=== PATIENT | female | born 1985 | race Caucasian/White ===

== ENCOUNTER 2019-07-13 00:49 | Inpatient (IN) ==
[2019-07-13] MEDS ORDERED: BETAMETHASONE ACETATE,SOD PHOS 6 MG/ML VIAL IM ONE (01:10)
[2019-07-13] MEDS ORDERED: RINGER'S SOLUTION,LACTATED 1,000 ML IV PRN (01:10)
[2019-07-13] MEDS ORDERED: PENICILLIN G POTASSIUM 5 MILLIONUNT in DEXTROSE 5 % IN WATER 100 ML IV ONE ×2 (01:10)
[2019-07-13] MEDS ORDERED: TERBUTALINE SULFATE 1 MG/ML VIAL SC ONE (01:10)
[2019-07-13 01:23] LABS: Hematocrit 38.5 % (37.0-47.0); Hemoglobin 13.2 gm/dL (12.5-16.0); Mean Cell Volume 88.1 fl (78-100); Mean Corpuscular Hemoglobin 30.2 pg (27-31); Mean Corpuscular Hgb Conc 34.3 g/dl (32-36); Platelet Count 228 K/mm3 (150-450); Red Blood Count 4.37 M/mm3 (4.2-5.4); Red Cell Distribution Width 12.1 % (11.5-14.0); White Blood Count 14.6 K/mm3 (4.0-10.5)
[2019-07-13 01:28] LABS: Total Cells Counted 100
[2019-07-13] MEDS ORDERED: CLINDAMYCIN PHOSPHATE 900 MG in DEXTROSE 5 % IN WATER 100 ML IV SCH ×2 (01:30)
[2019-07-13 01:36] LABS: Eosinophil 1 % (0-3); Lymphocyte 45 % (20-51); Monocyte 6 % (0-9); Neutrophil 48 % (42-75); Platelet Estimate Normal (NORMAL); RBC Morphology Normal (NORMAL)
--- NOTE | 2019-07-13 02:34 | HP ---
Chief Complaint - Chief Complaint Date of Service: 07/13/19 Time of Service: 02:17 Chief Complaint: LOF History of Present Illness: 34 yo at 33 6/7 weeks presents to L&D complaining of a gush of fluid around 0015 with continued LOF since then. Patient got up to go the bathroom and on the way back to bed felt a gush of fluid that soaked her clothing and bed. She denies contractions, abdominal pain, SOB, vaginal bleeding, N/V/F/C. This complicated by h/o PTD at 32 wks (on progesterone suppositories), migraines, short cervix, and h/o LEEP. Rh negative Rubella immune GBS pending Medical History (Updated 07/13/19 @ 02:34 by Stephane Mcintosh DO) Cervix, short (affecting ) (Acute) 3cm on 08/17/19 History of delivery, currently (Acute) History of delivery (Chronic) 32 wks PPROM/PTD at [facility] Body piercing Onset Date: Unknown Hemorrhoids Onset Date: Unknown Migraine Onset Date: Unknown without aura Tattoos Onset Date: Unknown Wears glasses Onset Date: Unknown Abnormal Pap smear of cervix Onset Date: ~2008 delivery Onset Date: 10/09/16 Surgical History: Surgical History (Updated 07/13/19 @ 02:34 by Stephane Mcintosh DO) History of colposcopy Onset Date: ~2008 History of cryosurgery Onset Date: ~2008 History of tonsillectomy Onset Date: 1991 [place] teeth extracted Onset Date: ~2006 Family History: Family History (Updated 09/05/18 @ 15:54 by Yoanna Louis CMA) Mother Anemia History of blood transfusion Father Depression Grandmother Cancer maternal - skin cancer Dementia Family/Other Cancer great grandfather - prostate cancer Social History: (Last Reviewed 07/13/19 @ 02:25 by Stephane Mcintosh DO) Social History: adopted: No half-way: No Marital status: household members: spouse, children number of children: 1 current occupational status: employed current occupation: Teacher current occupational exposures/hazards: No Highest education level completed: Master's degree Sexually Active: Yes Service: No Tobacco: Smoking Status: Never smoker Alcohol: alcohol intake: current alcohol intake frequency: holiday/special occasion details: No alcohol since + UPT Substance Use: substance use type: does not use Dietary Habits: caffeine: Yes caffeine comment: 1/day Exercise: frequency: 3-4 times per week Trudy/Jewish: agree to transfusion: Yes Review Of Systems (GEN) - Review of Systems Generalized/Overall Review: Present: No Symptoms Reported EENTM: Present: No Symptoms Reported Respiratory: Present: No Symptoms Reported Cardiac: Present: No Symptoms Reported Abdominal: Present: No Symptoms Reported Genitourinary: Present: Other - vaginal LOF - clear Musculoskeletal: Present: No Symptoms Reported Neurological: Present: No Symptoms Reported Skin: Present: No Symptoms Reported Endocrine: Present: No Symptoms Reported Allergies/Adverse Reactions: Allergies Allergy/AdvReac Type Severity Reaction Status Date / Time amoxicillin Allergy Severe hives Verified 07/13/19 01:12 Penicillins Allergy Severe Hives Verified 07/13/19 01:12 Home Medications: HOME MEDICATIONS L.acidoph,Paracasei, B.lactis [Probiotic] 1 ea PO DAILY 08/26/16 [Last Taken Unknown] Pnv,Calcium 72/Iron/Folic Acid [ Plus Tablet] 1 ea PO DAILY 08/26/16 [La st Taken Unknown] Progesterone VGS 200 mg 1 supp suppository 1 supp VG HS #28 supp 03/17/19 [Last Taken Unknown] inulin 2 gram chewable tablet g PO tab 04/14/19 [Last Taken Unknown] magnesium 200 mg tablet 200 mg PO DAILY 06/02/19 [Last Taken Unknown] Exam - Exam Constitutional: Present: Alert, Oriented x3, Cooperative, No distress ENT Exam: Present: hearing grossly normal Neck: Present: supple. Absent: thyromegaly Breasts: Present: Exam deferred Respiratory: Present: lungs clear, no respiratory distress Cardiovascular/Chest: Present: regular rate, rhythm, no edema Abdomen: Present: soft, nontender, no rebound tenderness, other - gravid /Rectal: Present: Other - Vaginal pooling, Nitrazine swab positive, Cervix 4/90/0 - cephalic presentation Extremity: Present: no pedal edema, no calf tenderness Skin Exam: Present: normal color, warm/dry, no cyanosis Lymphatic: Present: no adenopathy Neurologic: Present: oriented x 3, other - anxious Appearance: Present: appropriate appearance, appropriate insight Eye contact: Present: cooperative, good eye contact Thoughts: Present: normal thought pattern Diagnostic Studies: Abnormal Lab Results 07/13/19 Range/Units 01:21 WBC 14.6 H (4.0-10.5) K/mm3 Neutrophils # (Manual) 7.0 H (1.3-6.0) K/mm3 Lymphocytes # (Manual) 6.6 H (1.5-3.5) k/mm3 Laboratory Results WBC 14.6 K/mm3 (4.0-10.5) H 07/13/19 01:21 RBC 4.37 M/mm3 (4.2-5.4) 07/13/19 01:21 Hgb 13.2 gm/dL (12.5-16.0) 07/13/19 01:21 Hct 38.5 % (37.0-47.0) 07/13/19 01:21 MCV 88.1 fl (78-100) 07/13/19 01:21 MCH 30.2 pg (27-31) 07/13/19 01:21 MCHC 34.3 g/dl (32-36) 07/13/19 01:21 RDW 12.1 % (11.5-14.0) 07/13/19 01:21 Plt Count 228 K/mm3 (150-450) 07/13/19 01:21 MPV 10.0 fl (8-12.5) 07/13/19 01:21 48 % (42-75) 07/13/19 01:21 45 % (20-51) 07/13/19 01:21 6 % (0-9) 07/13/19 01:21 1 % (0-3) 07/13/19 01:21 7.0 K/mm3 (1.3-6.0) H 07/13/19 01:21 6.6 k/mm3 (1.5-3.5) H 07/13/19 01:21 0.9 k/mm3 (0.0-1.0) 07/13/19 01:21 0.1 k/mm3 (0.0-0.7) 07/13/19 01:21 Normal (NORMAL) 07/13/19 01:21 RBC Morphology Normal (NORMAL) 07/13/19 01:21 Assessment/Plan - Assessment/Plan (1) premature rupture of membranes Assessment: Admit to L&D. GBS cx done. IV Clindamycin started per GBS protocol. Betamethasone 12mg IM x1, repeat in 24 hours. Minimize vaginal checks. R/b/a discussed with patient and family regarding transfer to [facility] vs delivering then transfer. Because patient's last labor was only 2 hours, we will deliver here and transfer baby to [facility] afterwards. Problem: Acute Qualifiers: PROM onset of labor timing: onset of labor within 24 hours of rupture Qualified Code(s): O42.019 - premature rupture of membranes, onset of labor within 24 hours of rupture, unspecified trimester (2) labor Problem: Acute Qualifiers: labor trimester: third trimester labor delivery status: with delivery in third trimester Fetus number: single or unspecified fetus Qualified Code(s): O60.14X0 - labor third trimester with delivery third trimester, not applicable or unspecified (3) Cervix, short (affecting ) Problem: Acute (4) History of delivery, currently Problem: Acute
[2019-07-13 03:29] LABS: Cocaine Ur Negative (NEGATIVE); Urine Barbiturate Negative (NEGATIVE); Urine Benzodiazepines Negative (NEGATIVE); Urine Opiates Negative (NEGATIVE); Urine PCP Negative (NEGATIVE); Urine THC Negative (NEGATIVE)
--- NOTE | 2019-07-13 03:38 | PN ---
Progess Note - Interim Date: 07/13/19 Time: 03:33 Narrative: 07/13/19 03:33 Patient becoming more uncomfortable with contractions and breathing through them Vital signs stable. FHT: 150 baseline, minimum variability, no decelerations, occasional small accelerations contractions q 1-3 min Cervix: 4-5/90/-1 Impression: Intrauterine at 33 6/7 weeks, premature rupture of membranes in labor, fetus with two-vessel cord. Unknown GBS status -on IV clindamycin due to penicillin allergy. Plan: Anticipate normal spontaneous vaginal delivery within the next 2 to 4 hours. Epidural as needed. Notify pediatricians.
[2019-07-13] MEDS ORDERED: GENTAMICIN SULFATE 400 MG in DEXTROSE 5 % IN WATER 100 ML IV ONE ×2 (04:07)
[2019-07-13] MEDS ORDERED: AZITHROMYCIN IV ONE ×2 (04:30)
[2019-07-13] MEDS ORDERED: DEXTROSE 5% IV ONE ×2 (04:30)
[2019-07-13] MEDS ORDERED: WATER IV ONE ×2 (04:30)
[2019-07-13] MEDS ORDERED: PENICILLIN G POTASSIUM 2.5 MILLIONUNT in DEXTROSE 5 % IN WATER 100 ML IV SCH ×2 (05:11)
[2019-07-13] MEDS ORDERED: HYDROCORTISONE 30 APPL TUBE TP PRN (07:56)
[2019-07-13] MEDS ORDERED: oxyCODONE HCL/ACETAMINOPHEN 1 TAB TABLET PO PRN (07:56)
[2019-07-13] MEDS ORDERED: BISACODYL 10 MG SUPP.RECT RC PRN (07:56)
[2019-07-13] MEDS ORDERED: OXYTOCIN/DEXTROSE 5%-WATER 30 UNITS/500 ML BAG IV ONE (07:56)
[2019-07-13] MEDS ORDERED: SENNOSIDES 8.6 MG TABLET PO PRN (07:56)
[2019-07-13] MEDS ORDERED: BENZOCAINE/MENTHOL 81 SPRAY CAN TP PRN (07:56)
[2019-07-13] MEDS ORDERED: IBUPROFEN 800 MG TABLET PO PRN (07:56)
[2019-07-13] MEDS ORDERED: GLYCERIN/WITCH HAZEL LEAF 40 APPL BOX TP PRN (07:56)
--- NOTE | 2019-07-13 08:04 | OR ---
Operative Report - Dictated Report Narrative: Spontaneous vaginal delivery of vigorously crying viable female at 0732 on 07/13/2019 with Apgars 9 and 9, weighing 2157 g in YARELI position with nuchal cord x1. Cord clamping delayed approximately 1 minute Placenta delivered complete, intact, with two vessel cord Estimated blood loss: Less than 50 ml Anesthesia: None Lacerations: None
[2019-07-13] MEDS ORDERED: MAGNESIUM OXIDE 400 MG TABLET PO SCH (09:00)
[2019-07-13] MEDS ORDERED: DOCUSATE SODIUM 100 MG CAPSULE PO SCH (09:00)
[2019-07-13] MEDS ORDERED: PRENATAL VITS96/IRON FUM/FOLIC 1 TAB TABLET PO SCH (09:00)
[2019-07-13] MEDS ORDERED: ACIDOPH PARACASEI B LACTIS PO SCH (09:00)
[2019-07-13] MEDS ORDERED: RHO(D) IMMUNE GLOBULIN 1,500 UNIT SYRINGE IM ONE (13:14)
[2019-07-13 17:49] VITALS: BP 116/56
--- NOTE | 2019-07-13 18:03 | PN ---
Subjective - Date and Time Seen Date: 07/13/19 Time: 17:58 Subjective Narrative: Pt desires early discharge to be with baby that was transferred to [facility]. Denies complaints. Objective - Review of Systems Generalized/Overall Review: Reports: No Symptoms Reported EENTM: Reports: No Symptoms Reported Respiratory: Reports: No Symptoms Reported Cardiac: Reports: No Symptoms Reported Abdominal: Reports: Other - tolerable menstrual like cramps Genitourinary Symptoms: Reports: No Symptoms Reported Musculoskeletal Complaints: Reports: No Symptoms Reported Neurological: Reports: No Symptoms Reported Skin: Reports: No Symptoms Reported Endocrine: Reports: No Symptoms Reported - Vitals Vitals: Last Vital Signs Temp 37.0 C 07/13/19 17:46 Pulse 77 07/13/19 17:46 Resp 18 07/13/19 17:46 BP 116/56 07/13/19 17:46 Pulse Ox 97 07/13/19 17:46 - Abnormal Lab Findings Abnormal Lab Findings: Abnormal Lab Results 07/13/19 Range/Units 01:21 WBC 14.6 H (4.0-10.5) K/mm3 Neutrophils # (Manual) 7.0 H (1.3-6.0) K/mm3 Lymphocytes # (Manual) 6.6 H (1.5-3.5) k/mm3 - Exam Constitutional: Present: Alert, Oriented x3, Cooperative, No distress ENT Exam: Present: hearing grossly normal Breasts: Present: Exam deferred Respiratory: Present: no respiratory distress Cardiovascular/Chest: Present: regular rate, rhythm Abdomen: Present: soft, nontender, no rebound tenderness /Rectal: Present: Exam deferred Extremity: Present: no pedal edema, no calf tenderness Skin Exam: Present: normal color, warm/dry, no cyanosis Neurologic: Present: normal mood/affect, oriented x 3 Appearance: Present: appropriate appearance, appropriate insight Eye contact: Present: cooperative, good eye contact Thoughts: Present: normal thought pattern, normal mood /affect Assessment/Plan Plan Narrative: Discharge to home with routine discharge instructions. Call for any questions or concerns. F/u in 3 wks. - Problems/Diagnosis (1) premature rupture of membranes Problem: Resolved Qualifiers: PROM onset of labor timing: onset of labor within 24 hours of rupture Qualified Code(s): O42.019 - premature rupture of membranes, onset of labor within 24 hours of rupture, unspecified trimester (2) labor Problem: Resolved Qualifiers: labor trimester: third trimester labor delivery status: with delivery in third trimester Fetus number: single or unspecified fetus Qualified Code(s): O60.14X0 - labor third trimester with delivery third trimester, not applicable or unspecified (3) Cervix, short (affecting ) Problem: Inactive (4) History of delivery, currently Problem: Resolved
--- NOTE | 2019-07-20 10:30 | PN ---
Progess Note - Interim Date: 07/20/19 Time: 10:30 History for MU History for MU Definition: * The number of deliveries resulting in a live the patient experienced prior to current hospitalization * The previous delivery of live twins or any live multiple gestation is considered one live event. *If primagravida or nulliparous is documented select zero for the number of previous live births. Live Events: Live Events: 1
== END 2019-07-13 18:30 | disposition home or self-care (01) | DRG 806 ==
LOC: OBCLINIC 00:49 → OB 01:19
PROVIDERS: ADMIT Obstetrics & Gynecology; ATTEND Obstetrics & Gynecology
CPT/HCPCS: 36415; 59025; 80307; 85007; 85025; 85460; 87081; 88307; J2790